=== PATIENT | male | born 1960 | race Caucasian/White ===

== ENCOUNTER 2022-11-23 12:54 | Outpatient (CLI) | payer OTHER, SELFPAY ==
--- NOTE | 2022-11-23 13:03 | ECG_ITS ---
Measurements Intervals [place] Rate: 52 P: 37 PA: 140 QRS: 75 QRSD: 94 T: 45 QT: 433 QTc: 406 Interpretive Statements SINUS BRADYCARDIA BORDERLINE ECG NO PREVIOUS ECG AVAILABLE FOR COMPARISON Electronically Signed On 11-23-2022 13:51:57 CDT by Alejandro Anthony D.O.
== END 2022-11-23 12:55 | disposition home or self-care (01) ==
LOC: CHSCARD 12:57
PROVIDERS: PCP Family Medicine; Visit Provider Family Medicine
DX: R07.9 Chest pain, unspecified (principal); R00.1 Bradycardia, unspecified
CPT/HCPCS: 93005

== ENCOUNTER 2023-02-03 08:21 | Outpatient (CLI) | payer OTHER, SELFPAY ==
--- NOTE | ~2023-02-03 | NM_ITS ---
EXAMINATION: NM bone scan whole body DATE: 02/03/2023 12:04 INDICATION: Prostate cancer TECHNIQUE: 26.5 mCi Tc-99m HDP was administered intravenously. Delayed whole-body scintigrams were o btained. COMPARISON: CT dated 02/03/2023 FINDINGS: Likely degenerative joint centered uptake at the bilateral acromioclavicular and sternoclavicular adriel nts, bilateral knees and hindfeet and at the right mid cervical facet joints. Mild uptake along the l eft mandible and right maxilla typical for dental disease. No other atypical foci of abnormal bone up take to suggest metastatic disease. IMPRESSION: 1. No atypical lesions suspicious for metastatic disease. 2. A few scattered likely degenerative joint centered foci of uptake and mild likely dental disease r elated uptake along the mandible and maxilla. Reviewed, dictated and finalized at location A. EATER OPERATOR IMPRESSION: 1. No atypical lesions suspicious for metastatic disease. 2. A few scattered likely degenerative joint centered foci of uptake and mild l ikely dental disease related uptake along the mandible and maxilla.
--- NOTE | ~2023-02-03 | CT_ITS ---
EXAMINATION: CT abdomen pelvis w con DATE: 02/03/2023 09:14 INDICATION: Malignant neoplasm of the prostate gland. TECHNIQUE: Computed tomography (CT) of the abdomen and pelvis was performed with 100 cc Omnipaque 350 intravenous contrast. The dose-length product was 1250.02 mGy-cm. Automated exposure control and ite rative reconstruction technique were employed. COMPARISON: None. FINDINGS: There is a 3 mm right middle lobe nodule, image 2, partially visualized. No significant ple ural or pericardial effusion. Heart size normal. Fatty infiltration of the liver. The spleen, pancrea s, adrenal glands and right kidney are unremarkable. There is a small exophytic 8 mm left renal cyst. No significant vascular abnormality. No lymphadenopathy. Enlarged heterogeneous prostate gland conta ining coarse eccentric calcifications. No focal lytic or blastic lesions. Moderate lower thoracic and lumbar spondylosis. IMPRESSION: 1. No evidence for metastatic disease. 2: Enlarged heterogeneous prostate gland containing coarse eccentric calcifications. 3: Right middle lobe nodule measuring 3 mm, likely benign. Consider follow-up low dose CT chest in 12 months. Reviewed, dictated and finalized at location B. MODEL IMPRESSION: 1. No evidence for metastatic disease. 2: Enlarged heterogeneous prostate gland containing coarse eccentric calcificat ions. 3: Right middle lobe nodule measuring 3 mm, likely benign. Consider follow-up l ow dose CT chest in 12 months.
[2023-02-03 09:06] LABS: Estimated Glomerular Filt Rate > 60
== END 2023-02-03 08:22 | disposition home or self-care (01) ==
PROVIDERS: PCP Family Medicine; Visit Provider Urology
DX: C61 Malignant neoplasm of prostate (principal)
CPT/HCPCS: 74177; 78306; A9503; Q9967

== ENCOUNTER 2023-04-02 12:40 | Outpatient (CLI) | payer OTHER, SELFPAY ==
--- NOTE | ~2023-04-02 | PE_ITS ---
EXAMINATION: PET_PETPSMAST_PT DATE: 04/02/2023 15:28 INDICATION: Prostate cancer TECHNIQUE: 9.348 mCi of pipflufolastat F-18 (18-F-DCFPyL) was administered i.v. Low dose computed to mography (CT) images were acquired from the base of the brain to the base of the brain to the proxima l thighs for attenuation correction and anatomic localization. Positron emission tomography (PET) amisha ges were acquired in the same distribution beginning 92 minutes after injection. Images including fus ed PET/CT images were reconstructed in axial, coronal, and sagittal planes. Automated exposure contro l technique was employed. The dose-length product was 1156.32mGy-cm. COMPARISON: None FINDINGS: Head/neck: Typical pattern of symmetric physiologic increased activity in the lacrimal, parotid and submandibula r glands as well as along the mucosa of the nasal and oral cavities, the kaya-, naso- and hypopharynx, the glottis and esophagus. There is also a typical pattern of symmetric tiny foci of mild likely phy siologic neural ganglia uptake at a few bilateral cervical neural foramina. No pathologically enlarge d cervical lymphadenopathy or suspicious foci of increased uptake in the visualized head or neck. Chest: Calcified right lower lobe nodule consistent with old granulomatous disease. No other suspicious pulm onary nodules, pneumonia, pulmonary edema or pleural effusion. Heart size is normal. Atherosclerotic coronary artery calcific location. No pericardial effusion. Thoracic aorta is normal in caliber. No p athologically enlarged or PSMA avid thoracic lymphadenopathy. Abdomen/pelvis/proximal thighs: Physiologic renal accumulation and excretion of activity in the kidneys, bladder and along portions o f ureters. Small region of increased PSMA activity without radiologic correlate at the left posterior inferior aspect of the prostate with maximal SUV of 9.6 consistent with provided history of primary prostate cancer. This region is located at and posterior to posterior medial couple small dystrophic calcifications in the left prostate. Normal degree and slightly heterogenous pattern of increased upt mac throughout the liver and spleen without radiologic correlate or dominant PSMA avid lesion. The ga llbladder, pancreas and bilateral adrenal glands are normal. Moderate uptake scattered throughout the bowels with typical duodenal and proximal jejunal predominance and without radiologic correlate, als o likely physiologic. Normal appendix. No other abnormal foci of increased uptake or pathologically e nlarged lymphadenopathy in the abdomen, pelvis or proximal thighs. Musculoskeletal: There are bridging osteophytes at multiple levels consistent with diffuse idiopathic skeletal hyperos tosis (DISH). Chronic mild L1 compression fracture with 20% anterior vertebral body height loss. Ther e are no suspicious lytic, blastic or abnormally PSMA avid bone lesions to suggest metastatic disease . IMPRESSION: 1. Small region of moderate increased PSMA activity at the left posterior inferior prostate consisten t with reported primary prostate cancer. No evident metastatic disease. Reviewed, dictated and finalized at location A. D JET CUTTER OPERATOR IMPRESSION: 1. Small region of moderate increased PSMA activity at the left posterior infer ior prostate consistent with reported primary prostate cancer. No evident metas tatic disease.
== END 2023-04-02 12:41 | disposition home or self-care (01) ==
PROVIDERS: PCP Family Medicine; Visit Provider Radiology Radiation Oncology
DX: C61 Malignant neoplasm of prostate (principal)
CPT/HCPCS: 78815; A9595